=== PATIENT | female | born 1995 | race Caucasian/White ===

== ENCOUNTER 2017-10-12 09:23 | Emergency (ER) | payer MEDICAID ==
[~2017-10-12] VITALS: Ht 157.5 cm; Wt 49.0 kg
[2017-10-12 09:24] VITALS: BP 152/70; PULSE 113; RESP 20; TEMP 98.6; O2SAT 99
--- NOTE | 2017-10-12 10:23 | PD ---
HPI Chief Complaint: Related Problem Time Seen by Provider: 09:48 Travel History International Travel<30 days: No Contact w/Intl Traveler<30days: No Traveled to known affect area: No History of Present Illness HPI Patient's 22 years old. She is noted to be 12 weeks . 2 weeks prior she had a ultrasound revealing intrauterine with a normal heart rate. This morning she had vaginal bleeding. She reports pain in the left lower pelvis. She cannot quantify number of pads used however reports copious blood in toilet bowl this am. She reports the urge to urinate in ER. This is first . She has no regular OB follow up. PFS Past Medical History ?: LMP: 07/19/17 Social History Tobacco Use: No Allergies-Medications (Allergen,Severity, Reaction): Coded Allergies: No Known Allergies (Unverified , 10/12/17) Reported Meds & Prescriptions Reported Meds & Active Scripts Active No Active Prescriptions or Reported Medications Review of Systems Except as stated in HPI: all other systems reviewed are Neg General / Constitutional: No: Fever Physical Exam Narrative GENERAL: 22 yo F, WNWD, mildly anxious SKIN: Warm and dry. HEAD: Atraumatic. Normocephalic. EYES: Pupils equal and round. No scleral icterus. No injection or drainage. ENT: No nasal bleeding or discharge. Mucous membranes pink and moist. NECK: Trachea midline. No JVD. CARDIOVASCULAR: Regular rate and rhythm. RESPIRATORY: No accessory muscle use. Clear to auscultation. Breath sounds equal bilaterally. GASTROINTESTINAL: Soft. Trace tenderness towards the left side. MUSCULOSKELETAL: Extremities without clubbing, cyanosis, or edema. No obvious deformities. NEUROLOGICAL: Awake and alert. No obvious cranial nerve deficits. Motor grossly within normal limits. Five out of 5 muscle strength in the arms and legs. Normal speech. PSYCHIATRIC: Appropriate mood and affect; insight and judgment normal. Data Data Last Documented VS Vital Signs Date Time Temp Pulse Resp B/P (MAP) Pulse Ox O2 Delivery O2 Flow Rate FiO2 10/12/17 09:24 98.6 113 20 152/70 (97) 99 Room Air Vital signs reviewed Orders Orders Beta Hcg (Quant/Titer) (10/12/17 09:53) Complete Rh (10/12/17 09:53) Urinalysis - C+S If Indicated (10/12/17 09:53) Urine Culture (10/12/17 09:55) Labs Laboratory Tests Test 10/12/17 09:55 10/12/17 10:00 Urine Color YELLOW Urine Turbidity CLOUDY Urine pH 7.5 Urine Specific [place] 1.017 Urine Protein 30 mg/dL Urine Glucose (UA) NEG mg/dL Urine Ketones NEG mg/dL Urine Occult Blood LARGE Urine Nitrite NEG Urine Bilirubin NEG Urine Urobilinogen LESS THAN 2.0 MG/DL Urine Leukocyte Esterase NEG Urine RBC 2 /hpf Urine WBC 1 /hpf Urine Squamous Epithelial Cells 22 /hpf Urine Amorphous Sediment MOD Urine Bacteria MOD /hpf Urine Mucus FEW /lpf Microscopic Urinalysis Comment CULTURE INDICATED Human Chorionic Gonadotropin, Quant 49599 MIU/ML MDM Medical Decision Making Medical Screen Exam Complete: Yes Emergency Medical Condition: Yes Differential Diagnosis UTI, blood type incompatibility, threatened Narrative Course OK positive Beta 90,663 TA US: IUP HR approx 150 UA: bacteriuria present, hematuria Pt HD stable Follow with OB in two days Pt verbalized understanding DX: threatened ab pelvic rest precautions discussed Diagnosis Primary Impression: Threatened miscarriage Referrals: Laurel Thakkar MD 2 days [employer] [facility] 2 days [facility] 2 days Additional Instructions: PLEASE FOLLOW UP WITH ANY OF THE OBSTETRICS NUMBERS LISTED Med/Other Pt SpecificInfo: Prescription(s) given Scripts Nitrofurantoin Monohydrate Macrocrystals (Macrobid) 100 Mg Cap 100 MG PO BID for Infection for 5 Days, #10 CAP 0 Refills Prov: Cosme Denson MD 10/12/17 Disposition: 01 DISCHARGE HOME Condition: Stable Cosme Denson MD Oct 12, 2017 10:23
[2017-10-12 10:41] LABS: BACTERIA, URINE MOD /hpf; BLOOD, URINE LARGE (NEG); GLUCOSE,URINE NEG (NEG); KETONE, URINE NEG (NEG); MUCUS URINE FEW /lpf (OCC); NITRITE,URINE NEG (NEG); PH, URINE 7.5 (5.0-8.5); SQUAMOUS EPITHELIAL CELL URINE 22 /hpf (0-5); URINE COLOR YELLOW (YELLW/STRAW)
[2017-10-12 10:42] LABS: COMMENT (UR) CULTURE INDICATED; CULTURE IF INDICATED CULTURE INDICATED
[2017-10-12 10:56] LABS: BETA HCG QUANT 90663 MIU/ML (0-5)
[2017-10-12] MEDS ORDERED: MACR100C2 PO (11:16)
== END 2017-10-12 11:52 | disposition home or self-care (01) ==
LOC: NEPD 09:23
DX: O20.0 Threatened abortion (principal); R82.71 Bacteriuria; R31.9 Hematuria, unspecified; Z3A.12 12 weeks gestation of pregnancy
CPT/HCPCS: 81001; 84702; 86901; 87086; 99285

== ENCOUNTER 2017-10-27 16:54 | Emergency (ER) | payer SELFPAY ==
[~2017-10-27 16:54] MED LIST: MACR100C2 PO
[2017-10-27 16:56] VITALS: BP 121/74; PULSE 81; RESP 18; TEMP 98.1; O2SAT 99
[2017-10-27] MEDS ORDERED: PRENTAB7 (17:14)
[2017-10-27 19:09] LABS: BACTERIA, URINE FEW /hpf; BILIRUBIN, URINE NEG (NEG); BLOOD, URINE MOD (NEG); GLUCOSE,URINE NEG (NEG); HYALINE CAST, URINE 1 /lpf (RARE); KETONE, URINE 150 mg/dL (NEG); MUCUS URINE FEW /lpf (OCC); NITRITE,URINE NEG (NEG); PH, URINE 5.5 (5.0-8.5); SQUAMOUS EPITHELIAL CELL URINE <1 /hpf (0-5); URINE COLOR YELLOW (YELLW/STRAW); URINE LEUKOCYTE ESTERASE NEG (NEG)
--- NOTE | 2017-10-27 19:38 | PD ---
HPI . Bleeding in Chief Complaint: Related Problem Time Seen by Provider: 17:20 Travel History International Travel<30 days: No Contact w/Intl Traveler<30days: No Traveled to known affect area: No History of Present Illness HPI This patient presents stating that she is 14 weeks and that she started bleeding today approximately 1 hour prior to presentation. She is using toilet paper for protection. The patient reports a previous similar episode a few weeks ago. She states that she was instructed to follow-up with OB but that she has been unsuccessful in obtaining an appointment. She states that she has called the office on multiple occasions and has been told that the doctor will call her back with an appointment. This is her first . She does not know her blood type. She reports no known modifying factors. Her symptoms are very mild. PFSH Past Medical History Diminished Hearing: No ?: LMP: 07/19/2017 : 1 Social History Alcohol Use: No Tobacco Use: No Substance Use: No Allergies-Medications (Allergen,Severity, Reaction): Coded Allergies: No Known Allergies (Unverified , 10/27/17) Reported Meds & Prescriptions Reported Meds & Active Scripts Active Reported Vitamins Tablet (Pnv No.95/Ferrous Fum/Folic AC) 28 Mg Iron-800 Mcg Tablet DAILY Review of Systems Except as stated in HPI: all other systems reviewed are Neg Genitourinary: Positive: Vaginal Bleeding Physical Exam Narrative GENERAL: Awake and alert and in no acute distress. SKIN: Warm and dry. HEAD: Normocephalic/atraumatic. EYES: Pupils are equal. Extraocular movements are intact. NECK: Normal range of motion. CARDIOVASCULAR: Regular rate and rhythm. RESPIRATORY: Nonlabored respirations. ABDOMEN: Abdomen is soft and nontender. : Scant blood in the vaginal vault. Cervical os is closed. There is no cervical motion tenderness. Her adnexa is nontender. Her uterus is appropriately enlarged for dates. MUSCULOSKELETAL: Atraumatic. NEUROLOGICAL: Nonfocal. PSYCHIATRIC: Appropriate mood and affect. Data Data Last Documented VS Vital Signs Date Time Temp Pulse Resp B/P (MAP) Pulse Ox O2 Delivery O2 Flow Rate FiO2 10/27/17 16:56 98.1 81 18 121/74 (90) 99 Room Air Orders Orders Gc And Chlamydia Pcr (10/27/17 17:30) Complete Rh (10/27/17 17:30) Wet Prep Profile (10/27/17 17:30) Urinalysis - C+S If Indicated (10/27/17 18:42) Labs Laboratory Tests Test 10/27/17 18:35 10/27/17 18:50 Clue Cells (Wet Prep) NONE SEEN Vaginal Trichomonas (Wet Prep) NONE SEEN Vaginal Yeast (Wet Prep) NONE SEEN Urine Color YELLOW Urine Turbidity CLEAR Urine pH 5.5 Urine Specific [place] 1.019 Urine Protein TRACE mg/dL Urine Glucose (UA) NEG mg/dL Urine Ketones 150 mg/dL Urine Occult Blood MOD Urine Nitrite NEG Urine Bilirubin NEG Urine Urobilinogen LESS THAN 2.0 MG/DL Urine Leukocyte Esterase NEG Urine RBC 2 /hpf Urine WBC 1 /hpf Urine Squamous Epithelial Cells <1 /hpf Urine Bacteria FEW /hpf Urine Hyaline Casts 1 /lpf Urine Mucus FEW /lpf Microscopic Urinalysis Comment CULT NOT INDICATED MDM Medical Decision Making Medical Screen Exam Complete: Yes Emergency Medical Condition: Yes Differential Diagnosis Differential diagnosis of bleeding in includes but is not limited to physiologic bleeding, spontaneous AB, ectopic , placenta previa Narrative Course This patient presents stating that she is 14 weeks and started bleeding one hour prior to presentation. I asked the nurses to obtain heart tones. They use the ultrasound machine to check her heart rate. Heart rate was about 160 and the baby was noted to be very active during their check of the heart tones. UA is negative for infection. Wet prep is negative. Blood type is O+. This patient is stable for discharge to home. She needs to establish herself with an electrician shop. Diagnosis Primary Impression: Bleeding in early Patient Instructions: General Instructions Additional Instructions: Follow-up with an electrician shop In the meantime, take a multivitamin. Avoid alcohol, cigarettes and anti- inflammatory medications such as aspirin, Advil or Aleve. Try to eat a well- balanced diet. Disposition: 01 DISCHARGE HOME Condition: Stable Cristin Lopez MD Oct 27, 2017 19:38
== END 2017-10-27 20:33 | disposition home or self-care (01) ==
LOC: NEPD 16:54
DX: O20.9 Hemorrhage in early pregnancy, unspecified (principal); Z3A.14 14 weeks gestation of pregnancy
CPT/HCPCS: 81001; 86901; 87210; 87491; 87591; 99283

== ENCOUNTER 2018-02-07 10:39 | Emergency (ER) | payer BC, MEDICAID ==
[~2018-02-07 10:39] MED LIST changes: -MACR100C2 PO; +PRENTAB7
[2018-02-07] MEDS ORDERED: LACTATED RINGER'S 1000 ML INJ 1,000 ML IV SCH (11:00)
[2018-02-07] MEDS ORDERED: TERBUTALINE INJ 1 MG/ML AMP SQ PRN (11:15)
--- NOTE | 2018-02-07 11:29 | PD ---
HPI Chief Complaint Abdominal pain back pain leg pain for about a week Date Seen: Feb 07, 2018 Time Seen: 11:22 Travel History International Travel<30 Days: No Contact w/Intl Traveler<30Days: No Known Affected Area: No History of Present Illness HPI This patient is 22-year-old at [address] Thakkar for care presents complaining of abdominal pain, back and leg pain for about a week. No leakage of fluid or blood vaginal bleeding. heart rate tracing is reactive, and she is dot with frequent low amplitude contractions at this time Weeks Gestation: 29 Para: 0 : 1 History Social History Alcohol Use: No Tobacco Use: No Substance Abuse: No Allergies-Medications (Allergen,Severity, Reaction): Coded Allergies: No Known Allergies (Unverified , 10/27/17) Home Meds Reported Medications Pnv No.95/Ferrous Fum/Folic AC ( Vitamins Tablet) 28 Mg Iron-800 Mcg Tablet, DAILY 10/27/17 Review of Systems General / Constitutional: No: Fever, Weight Gain, Chills, Other Eyes: No: Diploplia, Blurred Vision, Visual changes, Pain, Photophobia HENT: No: Headaches, Vertigo, Lightheadedness Cardiovascular: No: Irregular Rhythm, Chest Pain or Discomfort, Palpitations, Tachycardia, Syncope, Varicosities, Edema, Cyanosis Respiratory: No: Cough, Short of Breath, Other Gastrointestinal: Abdominal Pain, No: Nausea, Vomiting, Diarrhea Genitourinary: No: Decreased Urinary Output, Oliguria Musculoskeletal: Pain, No: Limited ROM, Weakness, Cramping, Edema Skin: No Rash, No Itching, No Dryness, No Lumps, No Change in Pigmentation, No Change in Nails, No Alopecia, No Lesions Neurologic: No: Weakness, Dizziness, Syncope, Focal Abnormalities, Coordination Problem, Headache, Slurred Speech, Seizures Psychiatric: No: Depression, Suicidal Ideations, Homicidal Ideation Endocrine: No: Heat Intolerance, Cold Intolerance, Polydipsia, Polyuria, Other Physical Exam Narrative GENERAL: Well-nourished, well-developed patient. SKIN: Warm and dry. HEAD: Normocephalic and atraumatic. EYES: No scleral icterus. No injection or drainage. ENT: No nasal drainage noted. Mucous membranes pink. Airway patent. NECK: Supple, trachea midline. No JVD. CARDIOVASCULAR: Regular rate and rhythm without murmurs, gallops, or rubs. RESPIRATORY: Breath sounds equal bilaterally. No accessory muscle use. BREASTS: Bilateral exam showed no masses , no retractions, no nipple discharge. ABDOMEN/GI: Abdomen soft, 1+-tender, bowel sounds present, no rebound, no guarding Gravid to [-29] weeks size Fundal Height: [29-] GENITOURINARY: External Genitalia: intact and normal in appearance FFN done Cervix: [mid-] Dilatation: [-0] Effacement: [thick-] Station: [-2] Membranes: [intact ] Uterine Contractions: [-+ small freq low amplitude CTXs seen] FHT's: Category: [1-] Baseline: [-133] Reactive: [-R] Variability: [-mod] Decels: [-0] EXTREMITIES: No cyanosis or edema. BACK: Nontender without obvious deformity. No CVA tenderness. NEUROLOGICAL: Awake and alert. Motor and sensory grossly within normal limits. Five out of 5 muscle strength in all muscle groups. Normal speech. Data Data Orders Orders Vital Signs (Adult) .ON ADMISSION (02/07/18 11:12) ^ Labor Status (02/07/18 11:12) Urinalysis - C+S If Indicated (02/07/18 11:12) ^ Non Stress Test (02/07/18 11:12) Diet Liquid (02/07/18 Lunch) Fibronectin (02/07/18 11:12) Lactated Ringer's 1000 Ml Inj (Lr 1000 M (02/07/18 11:00) Terbutaline Inj (Brethine Inj) (02/07/18 11:15) Fentanyl Inj (Fentanyl Inj) (02/07/18 11:15) Labs Urinalysis-shows many bacteria and white cells negative nitrites and culture indicated Laboratory Tests Test 02/07/18 11:00 MDM Interpretation(s) Patient is a 22-year-old at [address] Thakkar for care presents complaining of abdominal back and leg pain. She is noted to have low amplitude frequent contractions on the monitor, heart rate tracing is reactive, cervix is closed but mid position and -2 station. FFN done and negative., Urinalysis- Plan Plan to hydrate, sedate, medicate this threatened labor with IV fluid, subcu terbutaline, and IV fentanyl, urinalysis with culture indicated would indicate treatment needed. While here with IV will give 100 mg of gentamicin IV. And then home with a monurol 3 g one-time dose for UTI. Tocolytic measures were successful contractions stopped , plan for patient be discharged home to bedrest, increase p.o. fluids, Tylenol as needed as needed. Diagnosis Diagnosis: Primary Impression: uterine contractions in third trimester, antepartum Additional Impressions: UTI (urinary tract infection) in in third trimester 29 weeks gestation of Disposition: DISCHARGE HOME Condition: Stable Scripts Fosfomycin Packet (Monurol Packet) 3 Gm Powderpack 3 GM PO ONCE for Infection for 1 Day, GM Prov: Demetrio Mckeon II, MD 02/07/18 Demetrio Mckeon II, MD Feb 07, 2018 11:29
[2018-02-07 11:36] LABS: BACTERIA, URINE MANY /hpf; BILIRUBIN, URINE NEG (NEG); BLOOD, URINE NEG (NEG); GLUCOSE,URINE NEG (NEG); KETONE, URINE NEG (NEG); MUCUS URINE FEW /lpf (OCC); NITRITE,URINE NEG (NEG); PH, URINE 6.5 (5.0-8.5); SQUAMOUS EPITHELIAL CELL URINE 3 /hpf (0-5); URINE COLOR LIGHT-YELLOW (YELLW/STRAW); URINE LEUKOCYTE ESTERASE NEG (NEG)
[2018-02-07] MEDS ORDERED: GENTAMICIN INJ 100 MG in SODIUM CHLORIDE 0.9% INJ 100 ML IV ONE (12:00)
[2018-02-07] MEDS ORDERED: MONUPAK PO (12:16)
== END 2018-02-07 12:55 | disposition home or self-care (01) ==
LOC: HOBED 10:39
DX: O23.43 Unspecified infection of urinary tract in pregnancy, third trimester (principal); Z3A.29 29 weeks gestation of pregnancy
CPT/HCPCS: 81001; 82731; 87086; 96361; 96365; 96372; 96375; 99284; J1580; J3010; J3105; J7120

== ENCOUNTER 2018-04-23 15:42 | Emergency (ER) | payer BC ==
[~2018-04-23 15:42] MED LIST changes: +MONUPAK PO
--- NOTE | 2018-04-23 16:51 | PD ---
HPI Chief Complaint contractions Date Seen: Apr 23, 2018 Time Seen: 16:47 Travel History International Travel<30 Days: No Contact w/Intl Traveler<30Days: No Known Affected Area: No History of Present Illness HPI G1 at 39 + wks who notes contraction. Denies LOF, good FM. History Past Medical History Medical History: Denies Significant Hx Obstetric History Obstetric History G1, care with [facility] Past Surgical History Surgical History: No Previous Surgery Family History Family History: Negative Social History Alcohol Use: No Tobacco Use: No Substance Abuse: No Allergies-Medications (Allergen,Severity, Reaction): Coded Allergies: No Known Allergies (Unverified , 10/27/17) Home Meds Active Scripts Fosfomycin Packet (Monurol Packet) 3 Gm Powderpack, 3 GM PO ONCE for Infection for 1 Day, GM Prov:Demetrio Mckeon II, MD 02/07/18 Reported Medications Pnv No.95/Ferrous Fum/Folic AC ( Vitamins Tablet) 28 Mg Iron-800 Mcg Tablet, DAILY 10/27/17 Review of Systems Except as stated in HPI: all other systems reviewed are Neg Physical Exam Narrative GENERAL: Well-nourished, well-developed patient. SKIN: Warm and dry. HEAD: Normocephalic and atraumatic. EYES: No scleral icterus. No injection or drainage. ENT: No nasal drainage noted. Mucous membranes pink. Airway patent. NECK: Supple, trachea midline. No JVD. CARDIOVASCULAR: Regular rate and rhythm without murmurs, gallops, or rubs. RESPIRATORY: Breath sounds equal bilaterally. No accessory muscle use. ABDOMEN/GI: Abdomen soft, non-tender, bowel sounds present, no rebound, no guarding Gravid to [-] weeks size Fundal Height: [38-] GENITOURINARY: External Genitalia: intact and normal in appearance BUS glands: [-] Cervix: [-] Dilatation: [-] Effacement: [-] Station: [-] Presentation: [-] Membranes: [intact or ruptured] Uterine Contractions: [-] FHT's: Category: [1-] Baseline: [-] Reactive: [-y] Variability: [-] Decels: [-] EXTREMITIES: No cyanosis or edema. BACK: Nontender without obvious deformity. No CVA tenderness. NEUROLOGICAL: Awake and alert. Motor and sensory grossly within normal limits. Five out of 5 muscle strength in all muscle groups. Normal speech. MDM Medical Record Reviewed: Yes Narrative Course / MDM A: primip at term not in labor P: labor precautions Diagnosis Diagnosis: Primary Impression: 39 weeks gestation of Additional Impression: Irregular uterine contractions Disposition: 01 DISCHARGE HOME Condition: Good Greg Elias MD Apr 23, 2018 16:51
--- NOTE | 2018-04-23 23:45 | PD ---
HPI Chief Complaint Increasing contractions and leakage of fluid Date Seen: Apr 23, 2018 Time Seen: 23:41 Travel History International Travel<30 Days: No Contact w/Intl Traveler<30Days: No Known Affected Area: No History of Present Illness HPI G1 at 39 + wks who notes increasing contractions and leakage of fluid. Weeks Gestation: 39 History Past Medical History Medical History: Denies Significant Hx Obstetric History Obstetric History Primigravida Past Surgical History Surgical History: No Previous Surgery Family History Family History: Negative Social History Alcohol Use: No Tobacco Use: No Substance Abuse: No Allergies-Medications (Allergen,Severity, Reaction): Coded Allergies: No Known Allergies (Unverified , 10/27/17) Home Meds Active Scripts Fosfomycin Packet (Monurol Packet) 3 Gm Powderpack, 3 GM PO ONCE for Infection for 1 Day, GM Prov:Demetrio Mckeon II, MD 02/07/18 Reported Medications Pnv No.95/Ferrous Fum/Folic AC ( Vitamins Tablet) 28 Mg Iron-800 Mcg Tablet, DAILY 10/27/17 Review of Systems Except as stated in HPI: all other systems reviewed are Neg Physical Exam Narrative GENERAL: Well-nourished, well-developed patient. SKIN: Warm and dry. HEAD: Normocephalic and atraumatic. EYES: No scleral icterus. No injection or drainage. ENT: No nasal drainage noted. Mucous membranes pink. Airway patent. NECK: Supple, trachea midline. No JVD. CARDIOVASCULAR: Regular rate and rhythm without murmurs, gallops, or rubs. RESPIRATORY: Breath sounds equal bilaterally. No accessory muscle use. ABDOMEN/GI: Abdomen soft, non-tender, bowel sounds present, no rebound, no guarding Gravid to [-] weeks size Fundal Height: [-] GENITOURINARY: External Genitalia: intact and normal in appearance BUS glands: [Negative-] Cervix: [-] Dilatation: [2-] Effacement: [-100] Station: [-1-] Presentation: [Vertex] Membranes: [ruptured] Uterine Contractions: [Every 2-3-] FHT's: Category: [-] Baseline: [140-] Reactive: [-] Variability: [Moderate-] Decels: [-] EXTREMITIES: No cyanosis or edema. BACK: Nontender without obvious deformity. No CVA tenderness. NEUROLOGICAL: Awake and alert. Motor and sensory grossly within normal limits. Five out of 5 muscle strength in all muscle groups. Normal speech. Data Data Vital Signs Reviewed: Yes Group B Strep: Negative MDM Medical Record Reviewed: Yes Narrative Course / MDM Assessment: Primigravida at 39+ weeks gestation in early labor with ruptured membranes Plan: Admit for labor management. Diagnosis Diagnosis: Primary Impression: 39 weeks gestation of Additional Impression: Irregular uterine contractions Condition: Stable Patient Instructions: General Instructions, Having Your Baby: The Labor Process (GEN), Movement (ED), Urinary Tract Infection in (ED) Departure Forms: Tests/Procedures Greg Elias MD Apr 23, 2018 23:45
[2018-04-23] MEDS ORDERED: LACTATED RINGER'S 1000 ML INJ 1,000 ML IV SCH (23:46)
[2018-04-23] MEDS ORDERED: LACTATED RINGER'S 1000 ML INJ 1,000 ML IV PRN (23:46)
--- NOTE | 2018-04-23 23:49 | HHI.HP ---
History & Physical H&P OB ED Note (Detail) Patient Name: Anamaria Sandhu Unit Number: [id number] Date of : 1995 Patient Status: Departed Emergency Room Attending Doctor: Greg Elias MD HPI HPI Chief Complaint Increasing contractions and leakage of fluid Date Seen: Apr 23, 2018 Time Seen: 23:41 Travel History International Travel<30 Days: No Contact w/Intl Traveler<30Days: No Known Affected Area: No History of Present Illness HPI G1 at 39 + wks who notes increasing contractions and leakage of fluid. Weeks Gestation: 39 History (Limited) History Past Medical History Medical History: Denies Significant Hx Obstetric History Obstetric History Primigravida Past Surgical History Surgical History: No Previous Surgery Family History Family History: Negative Social History Alcohol Use: No Tobacco Use: No Substance Abuse: No Allergies-Medications Allergies-Medications (Allergen,Severity, Reaction): Coded Allergies: No Known Allergies (Unverified , 10/27/17) Home Meds Active Scripts Fosfomycin Packet (Monurol Packet) 3 Gm Powderpack, 3 GM PO ONCE for Infection for 1 Day, GM Prov:Demetrio Mckeon II, MD 02/07/18 Reported Medications Pnv No.95/Ferrous Fum/Folic AC ( Vitamins Tablet) 28 Mg Iron-800 Mcg Tablet, DAILY 10/27/17 ROS Review of Systems Except as stated in HPI: all other systems reviewed are Neg Physical Exam Physical Exam Narrative GENERAL: Well-nourished, well-developed patient. SKIN: Warm and dry. HEAD: Normocephalic and atraumatic. EYES: No scleral icterus. No injection or drainage. ENT: No nasal drainage noted. Mucous membranes pink. Airway patent. NECK: Supple, trachea midline. No JVD. CARDIOVASCULAR: Regular rate and rhythm without murmurs, gallops, or rubs. RESPIRATORY: Breath sounds equal bilaterally. No accessory muscle use. ABDOMEN/GI: Abdomen soft, non-tender, bowel sounds present, no rebound, no guarding Gravid to [-] weeks size Fundal Height: [-] GENITOURINARY: External Genitalia: intact and normal in appearance BUS glands: [Negative-] Cervix: [-] Dilatation: [2-] Effacement: [-100] Station: [-1-] Presentation: [Vertex] Membranes: [ruptured] Uterine Contractions: [Every 2-3-] FHT's: Category: [-] Baseline: [140-] Reactive: [-] Variability: [Moderate-] Decels: [-] EXTREMITIES: No cyanosis or edema. BACK: Nontender without obvious deformity. No CVA tenderness. NEUROLOGICAL: Awake and alert. Motor and sensory grossly within normal limits. Five out of 5 muscle strength in all muscle groups. Normal speech. Data Data Data Vital Signs Reviewed: Yes Group B Strep: Negative MDM MDM Medical Record Reviewed: Yes Narrative Course / MDM Assessment: Primigravida at 39+ weeks gestation in early labor with ruptured membranes Plan: Admit for labor management. Diagnosis Diagnosis: Primary Impression: 39 weeks gestation of Additional Impression: Irregular uterine contractions Condition: Stable Patient Instructions: General Instructions, Having Your Baby: The Labor Process (GEN), Movement (ED), Urinary Tract Infection in (ED) Departure Forms: Tests/Procedures Greg Elias MD Apr 23, 2018 23:45 Greg Elias MD Apr 23, 2018 23:49
[2018-04-24] MEDS ORDERED: CITRIC ACID-SODIUM CITRATE LIQ 30 ML UDC PO SCH
[2018-04-24] MEDS ORDERED: OXYTOCIN 30 UNITS-500ML PREMIX 500 ML IV ONE
[2018-04-24] MEDS ORDERED: LIDOCAINE HCL 1% 50 ML VIAL I-DERMAL PRN
[2018-04-24] MEDS ORDERED: LIDOCAINE HCL 1% 50 ML VIAL INFIL PRN
[2018-04-24] MEDS ORDERED: MINERAL OIL 10 ML VIAL TOPICAL PRN
[2018-04-24] MEDS ORDERED: SODIUM CHLORID 0.9% 500 ML INJ 500 ML IV PRN
[2018-04-24] MEDS ORDERED: SODIUM CHLOR 0.9% 1000 ML INJ 1,000 ML IV PRN (00:06)
[2018-04-24 00:32] LABS: AUTOMATED NEUTROPHIL # 13.2 TH/MM3 (1.8-7.7); BASOPHIL # 0.1 TH/MM3 (0-0.2); BASOPHIL % 0.4 % (0.0-2.0); EOSINOPHIL % 0.3 % (0.0-4.0); HEMATOCRIT 41.6 % (35.0-46.0); HEMOGLOBIN 14.3 GM/DL (11.6-15.3); LYMPH % 11.5 % (9.0-44.0); LYMPHOCYTE # 1.8 TH/MM3 (1.0-4.8); MEAN CELL VOLUME 87.1 FL (80.0-100.0); MEAN CORPUSCULAR HEMOGLOBIN 29.8 PG (27.0-34.0); MEAN CORPUSCULAR HGB CONC 34.3 % (32.0-36.0); MEAN PLATELET VOLUME 8.2 FL (7.0-11.0); MONO % 5.7 % (0.0-8.0); MONOCYTE # 0.9 TH/MM3 (0-0.9); NEUT % 82.1 % (16.0-70.0); PLATELET COUNT 321 TH/MM3 (150-450); RED BLOOD COUNT 4.78 MIL/MM3 (4.00-5.30); RED CELL DISTRIBUTION WIDTH 13.3 % (11.6-17.2); WHITE BLOOD COUNT 16.1 TH/MM3 (4.0-11.0)
== END 2018-04-23 18:07 | disposition home or self-care (01) ==
LOC: HOBED 15:42
DX: O47.1 False labor at or after 37 completed weeks of gestation (principal); Z3A.39 39 weeks gestation of pregnancy
CPT/HCPCS: 59025; 80307; 84112; 85025; 86900; 86901

== ENCOUNTER 2018-04-23 23:21 | Inpatient (IN) | payer BC ==
[~2018-04-23] VITALS: Ht 157.5 cm; Wt 58.0 kg
[2018-04-24] VITALS (72 sets, daily range): BP systolic 87–133; BP diastolic 51–92; PULSE 61–119; RESP 16–20; TEMP 97.5–98.8
[2018-04-24] MEDS ORDERED: LIDOCAINE HCL 1% 50 ML VIAL INFIL PRN (00:30)
[2018-04-24] MEDS ORDERED: LACTATED RINGER'S 1000 ML INJ 1,000 ML IV PRN (00:30)
[2018-04-24] MEDS ORDERED: LIDOCAINE HCL 1% 50 ML VIAL I-DERMAL PRN (00:30)
[2018-04-24] MEDS ORDERED: MINERAL OIL 10 ML VIAL TOPICAL PRN (00:30)
[2018-04-24] MEDS: LACTATED RINGER'S 1000 ML INJ 1,000 ML IV SCH ×3 (00:30→16:34)
[2018-04-24] MEDS ORDERED: SODIUM CHLORID 0.9% 500 ML INJ 500 ML IV PRN (00:30)
[2018-04-24] MEDS ORDERED: CITRIC ACID-SODIUM CITRATE LIQ 30 ML UDC PO SCH (00:30)
[2018-04-24] MEDS ORDERED: OXYTOCIN 30 UNITS-500ML PREMIX 500 ML IV ONE (00:30)
--- NOTE | 2018-04-24 00:34 | HHI.HP ---
History & Physical H&P OB ED Note (Detail) Patient Name: Anamaria Sandhu Unit Number: [id number] Date of : 1995 Patient Status: Departed Emergency Room Attending Doctor: Greg Elias MD HPI HPI Chief Complaint Increasing contractions and leakage of fluid Date Seen: Apr 23, 2018 Time Seen: 23:41 Travel History International Travel<30 Days: No Contact w/Intl Traveler<30Days: No Known Affected Area: No History of Present Illness HPI G1 at 39 + wks who notes increasing contractions and leakage of fluid. Weeks Gestation: 39 History (Limited) History Past Medical History Medical History: Denies Significant Hx Obstetric History Obstetric History Primigravida Past Surgical History Surgical History: No Previous Surgery Family History Family History: Negative Social History Alcohol Use: No Tobacco Use: No Substance Abuse: No Allergies-Medications Allergies-Medications (Allergen,Severity, Reaction): Coded Allergies: No Known Allergies (Unverified , 10/27/17) Home Meds Active Scripts Fosfomycin Packet (Monurol Packet) 3 Gm Powderpack, 3 GM PO ONCE for Infection for 1 Day, GM Prov:Demetrio Mckeon II, MD 02/07/18 Reported Medications Pnv No.95/Ferrous Fum/Folic AC ( Vitamins Tablet) 28 Mg Iron-800 Mcg Tablet, DAILY 10/27/17 ROS Review of Systems Except as stated in HPI: all other systems reviewed are Neg Physical Exam Physical Exam Narrative GENERAL: Well-nourished, well-developed patient. SKIN: Warm and dry. HEAD: Normocephalic and atraumatic. EYES: No scleral icterus. No injection or drainage. ENT: No nasal drainage noted. Mucous membranes pink. Airway patent. NECK: Supple, trachea midline. No JVD. CARDIOVASCULAR: Regular rate and rhythm without murmurs, gallops, or rubs. RESPIRATORY: Breath sounds equal bilaterally. No accessory muscle use. ABDOMEN/GI: Abdomen soft, non-tender, bowel sounds present, no rebound, no guarding Gravid to [-] weeks size Fundal Height: [-] GENITOURINARY: External Genitalia: intact and normal in appearance BUS glands: [Negative-] Cervix: [-] Dilatation: [2-] Effacement: [-100] Station: [-1-] Presentation: [Vertex] Membranes: [ruptured] Uterine Contractions: [Every 2-3-] FHT's: Category: [-] Baseline: [140-] Reactive: [-] Variability: [Moderate-] Decels: [-] EXTREMITIES: No cyanosis or edema. BACK: Nontender without obvious deformity. No CVA tenderness. NEUROLOGICAL: Awake and alert. Motor and sensory grossly within normal limits. Five out of 5 muscle strength in all muscle groups. Normal speech. Data Data Data Vital Signs Reviewed: Yes Group B Strep: Negative MDM MDM Medical Record Reviewed: Yes Narrative Course / MDM Assessment: Primigravida at 39+ weeks gestation in early labor with ruptured membranes Plan: Admit for labor management. Diagnosis Diagnosis: Primary Impression: 39 weeks gestation of Additional Impression: Irregular uterine contractions Condition: Stable Patient Instructions: General Instructions, Having Your Baby: The Labor Process (GEN), Movement (ED), Urinary Tract Infection in (ED) Departure Forms: Tests/Procedures Greg Elias MD Apr 23, 2018 23:45 Greg Elias MD Apr 24, 2018 00:34
[2018-04-24] MEDS ORDERED: SODIUM CHLOR 0.9% 1000 ML INJ 1,000 ML IV PRN (00:50)
[2018-04-24 04:52] LABS: BACTERIA, URINE OCC /hpf; BILIRUBIN, URINE NEG (NEG); BLOOD, URINE SMALL (NEG); GLUCOSE,URINE NEG (NEG); KETONE, URINE TRACE mg/dL (NEG); NITRITE,URINE NEG (NEG); SQUAMOUS EPITHELIAL CELL URINE 2 /hpf (0-5); URINE COLOR Straw (YELLW/STRAW); URINE LEUKOCYTE ESTERASE NEG (NEG)
[2018-04-24] MEDS ORDERED: OXYTOCIN 30 UNITS/NS 500ML PREMIX IV PRN (06:30)
[2018-04-24] MEDS ORDERED: fentaNYL 2MCG-BUPIV 0.125% INJ 150 ML EPIDURAL ONE (09:55)
[2018-04-24] MEDS ORDERED: ePHEDrine/NS 25 MG/5 ML SYRINGE ONE (09:56)
[2018-04-24] MEDS ORDERED: DO NOT ADMINISTER ANTICOAGULANTS PRN (10:45)
[2018-04-24] MEDS ORDERED: ePHEDrine/NS 25 MG/5 ML SYRINGE IV PUSH PRN (10:45)
[2018-04-24] MEDS ORDERED: fentaNYL 2MCG-BUPIV 0.125% 150 ML EPIDURAL PRN (10:45)
[2018-04-24] MEDS ORDERED: NO SYSTEM NARCOTICS PRN (10:45)
--- NOTE | 2018-04-24 12:41 | PD.LABORPN ---
Subjective Subjective doing well Objective Vital Signs Vital Signs Date Time Temp Pulse Resp B/P (MAP) Pulse Ox O2 Delivery O2 Flow Rate FiO2 04/24/18 12:04 97.5 17 04/24/18 12:00 64 117/61 (79) 04/24/18 11:46 80 100/72 (81) 04/24/18 11:40 65 119/57 (77) 04/24/18 11:35 70 118/60 (79) 04/24/18 11:30 79 132/72 (92) 04/24/18 11:25 67 115/56 (75) 04/24/18 11:20 75 113/55 (74) 04/24/18 11:15 88 105/65 (78) 04/24/18 11:10 86 112/60 (77) 04/24/18 11:05 64 124/67 (86) 04/24/18 11:00 91 133/59 (83) 04/24/18 10:58 62 112/64 (80) 04/24/18 10:56 79 04/24/18 10:55 69 04/24/18 10:50 66 116/60 (78) 04/24/18 10:50 63 04/24/18 10:45 78 04/24/18 10:45 73 116/62 (80) 04/24/18 10:40 64 04/24/18 10:40 87 118/58 (78) 04/24/18 10:38 18 04/24/18 10:35 77 104/55 (71) 04/24/18 10:35 92 04/24/18 10:30 62 04/24/18 10:30 66 108/54 (72) 04/24/18 10:25 61 04/24/18 10:25 74 116/54 (74) 04/24/18 10:23 97.7 17 04/24/18 10:20 70 112/53 (72) 04/24/18 10:20 68 04/24/18 10:15 83 126/53 (77) 04/24/18 10:15 71 04/24/18 10:13 67 18 124/58 (80) 04/24/18 10:10 72 04/24/18 10:05 93 04/24/18 09:31 65 128/78 (95) 04/24/18 09:01 67 19 128/66 (86) 04/24/18 08:24 18 04/24/18 08:15 19 04/24/18 08:01 71 128/58 (81) 04/24/18 07:53 98.3 04/24/18 07:30 87 123/64 (83) 04/24/18 07:20 19 04/24/18 07:00 104 119/63 (81) 04/24/18 06:48 98.3 18 04/24/18 06:47 98 128/86 (100) 04/24/18 05:59 16 04/24/18 05:59 62 103/56 (72) 04/24/18 04:53 78 18 119/55 (76) 04/24/18 04:53 98.2 Objective Pelvic Exam: Cervix: [-] Dilatation: 4-5 Effacement: [-] Station: [-] Presentation: vtx Membranes: AROM Uterine Contractions: [-] FHT's: Category: 1 Baseline: [-] Reactive: [-] Variability: [-] Decels: [-] Weeks Gestation: 39 Gest Age Assessed Date: Apr 24, 2018 Gest Age Assessed Time: 00:01 Assessment/Plan Problem List: (1) 39 weeks gestation of ICD Codes: Z3A.39 - 39 weeks gestation of Status: Acute Assessment and Plan patient membranes ruptured and she was admitted and was dot well little progress and then we started pitocin and then AROM the forebag Paco Gallegos MD Apr 24, 2018 12:41
[2018-04-24] MEDS ORDERED: MEASLES, MUMPS, RUBELLA VACCINE 0.5 ML VIAL SQ ONE (16:00)
[2018-04-24] MEDS ORDERED: DIPHTH/TETANUS/ACEL PERTUSSIS (BOOSTER) 0.5 ML VIAL/PFS IM ONE (16:00)
[2018-04-24] MEDS ORDERED: ZOLPIDEM TARTRATE 5 MG TAB PO PRN (18:00)
[2018-04-24] MEDS ORDERED: ONDANSETRON ODT 4 MG TAB PO PRN (18:00)
[2018-04-24] MEDS ORDERED: WITCH HAZEL 50%/GLYCERIN 12.5% 40 PAD JAR TOPICAL PRN (18:00)
[2018-04-24] MEDS ORDERED: OXYTOCIN 30 UNITS-500ML PREMIX 500 ML IV SCH (18:00)
[2018-04-24] MEDS ORDERED: ALUMINUM/MAGNESIUM/SIMETH 30 ML CUP PO PRN (18:00)
[2018-04-24] MEDS ORDERED: oxyCODONE/ACETAMINOPHEN 5 MG/325 MG TAB PO PRN ×2 (18:00)
[2018-04-24] MEDS ORDERED: SODIUM CHLORIDE 0.9% FLUSH 10 ML FLUSH IV FLUSH PRN (18:00)
[2018-04-24] MEDS ORDERED: BENZOCAINE 20% TOPICAL SPRAY 60 ML CAN TOPICAL PRN (18:00)
--- NOTE | 2018-04-24 18:00 | PD.OB.DELI ---
Weeks gestation: 39 Gest age assessed date: Apr 24, 2018 Gest age assessed time: 00:01 Anesthesia: Epidural Episiotomy: None Vaginal Delivery: Normal Presentation: Occiput anterior Nuchal Cord: None Delayed cord clamping (45 sec): Yes : Female, Single Delivery date: Apr 24, 2018 Delivery time: 17:39 One Minute : 9 Five Minute : 9 Placenta: Spontaneous delivery, Intact, 3 vessel cord Laceration: Perineal laceration, 2 deg Repair: Chromic interrupted Paco Gallegos MD Apr 24, 2018 18:00
[2018-04-24] MEDS: IBUPROFEN 800 MG TAB PO PRN (20:01)
[2018-04-24] MEDS ORDERED: SODIUM CHLORIDE 0.9% FLUSH 10 ML FLUSH IV FLUSH SCH (21:00)
[2018-04-24] MEDS: ACETAMINOPHEN 325 MG TAB PO PRN (21:20)
[2018-04-25] MEDS: IBUPROFEN 800 MG TAB PO PRN ×2 (04:26→15:42)
[2018-04-25] MEDS: ACETAMINOPHEN 325 MG TAB PO PRN ×4 (04:26→21:04)
[2018-04-25 08:00] VITALS: TEMP 98
--- NOTE | 2018-04-25 09:30 | HHI.OB ---
Subjective Post Day: 1 Remarks Pt doing well, no co Objective Vitals/I&O Vital Signs Date Time Temp Pulse Resp B/P (MAP) Pulse Ox O2 Delivery O2 Flow Rate FiO2 04/25/18 08:00 98.0 04/24/18 20:35 76 18 119/71 (87) 04/24/18 20:35 98.5 04/24/18 18:48 18 04/24/18 18:45 98 124/70 (88) 04/24/18 18:30 92 125/67 (86) 04/24/18 18:22 90 17 130/76 (94) 04/24/18 18:20 18 04/24/18 18:00 90 129/71 (90) 04/24/18 17:57 98.3 04/24/18 17:52 17 04/24/18 17:51 103 126/92 (103) 04/24/18 17:35 106 04/24/18 17:30 106 04/24/18 17:25 108 04/24/18 17:20 85 04/24/18 17:01 119 123/70 (87) 04/24/18 16:31 81 118/73 (88) 04/24/18 16:01 84 109/71 (84) 04/24/18 15:31 90 121/57 (78) 04/24/18 15:26 98.5 18 04/24/18 15:01 82 117/51 (73) 04/24/18 14:31 79 120/57 (78) 04/24/18 14:01 88 121/59 (79) 04/24/18 13:31 79 108/62 (77) 04/24/18 13:02 74 119/66 (83) 04/24/18 12:31 82 87/71 (76) 04/24/18 12:04 97.5 17 04/24/18 12:00 64 117/61 (79) 04/24/18 11:46 80 100/72 (81) 04/24/18 11:40 65 119/57 (77) 04/24/18 11:35 70 118/60 (79) 04/24/18 11:30 79 132/72 (92) 04/24/18 11:25 67 115/56 (75) 6/24/18 11:20 75 113/55 (74) 04/24/18 11:15 88 105/65 (78) 04/24/18 11:10 86 112/60 (77) 04/24/18 11:05 64 124/67 (86) 04/24/18 11:00 91 133/59 (83) 04/24/18 10:58 62 112/64 (80) 04/24/18 10:56 79 04/24/18 10:55 69 04/24/18 10:50 66 116/60 (78) 04/24/18 10:50 63 04/24/18 10:45 78 04/24/18 10:45 73 116/62 (80) 04/24/18 10:40 64 04/24/18 10:40 87 118/58 (78) 04/24/18 10:38 18 04/24/18 10:35 77 104/55 (71) 04/24/18 10:35 92 04/24/18 10:30 62 04/24/18 10:30 66 108/54 (72) 04/24/18 10:25 61 04/24/18 10:25 74 116/54 (74) 04/24/18 10:23 97.7 17 04/24/18 10:20 70 112/53 (72) 04/24/18 10:20 68 04/24/18 10:15 83 126/53 (77) 04/24/18 10:15 71 04/24/18 10:13 67 18 124/58 (80) 04/24/18 10:10 72 04/24/18 10:05 93 04/24/18 09:31 65 128/78 (95) Objective Remarks GENERAL: Well-nourished, well-developed patient. CARDIOVASCULAR: Regular rate and rhythm without murmurs, gallops, or rubs. RESPIRATORY: Breath sounds equal bilaterally. No accessory muscle use. ABDOMEN/GI: Abdomen soft, non-tender. Fundus: Firm, non-tender at umbilicus. GENITOURINARY: Light to moderate bleeding. EXTREMITIES: No cyanosis or edema, non-tender, without signs of DVT. Medications and IVs Current Medications Medications (Trade) Dose Ordered Sig/Daniel Route Start Time Stop Time Status [facility] No systemic narcotics to be given except... UNSCH PRN .XX 6/24/18 10:45 04/25/18 10:44 [place] [place] DO NOT ADMINISTER ANY ANTICOAGUL... UNSCH PRN .XX 04/24/18 10:45 04/25/18 10:44 (NS Flush) 2 ml BID IV FLUSH 04/24/18 21:00 (NS Flush) 2 ml UNSCH PRN IV FLUSH 04/24/18 18:00 (Tylenol) 650 mg Q4H PRN PO 04/24/18 18:00 04/25/18 04:26 (Motrin) 800 mg Q8H PRN PO 04/24/18 18:00 04/25/18 04:26 (Percocet 5-325 Mg) 1 tab Q4H PRN PO 04/24/18 18:00 (Percocet 5-325 Mg) 2 tab Q4H PRN PO 04/24/18 18:00 (Americaine 20% Top Spr) 1 spray Q4H PRN TOPICAL 04/24/18 18:00 04/24/18 21:20 (Tucks Pads) 1 applic QID PRN TOPICAL 04/24/18 18:00 04/24/18 21:18 (Denisse-Colace) 2 tab Q12H PRN PO 04/24/18 18:00 (Ambien) 5 mg HS PRN PO 04/24/18 18:00 (Mag-Al Plus Susp Liq) 15 ml Q8H PRN PO 04/24/18 18:00 (Zofran Odt) 4 mg Q6H PRN PO 04/24/18 18:00 Assessment/Plan Problem List: (1) 39 weeks gestation of ICD Codes: Z3A.39 - 39 weeks gestation of Status: Acute Assessment and Plan PPD # 1 s/p doing well, routine care Laurel Thakkar MD Apr 25, 2018 09:30
[2018-04-25] MEDS: DOCUSATE SODIUM 50 MG/SENNA 8.6 MG TAB PO PRN (15:55)
[2018-04-25 20:00] VITALS: BP 110/78; PULSE 102; RESP 18; TEMP 98.1; O2SAT 98
[2018-04-26] MEDS: ACETAMINOPHEN 325 MG TAB PO PRN (05:13)
[2018-04-26] MEDS: DOCUSATE SODIUM 50 MG/SENNA 8.6 MG TAB PO PRN (05:13)
[2018-04-26] MEDS: IBUPROFEN 800 MG TAB PO PRN (05:14)
[2018-04-26 08:00] VITALS: BP 117/57; PULSE 71; RESP 20; TEMP 98.8; O2SAT 98
--- NOTE | 2018-04-26 12:51 | HHI.DCPOC ---
Discharge Care Plan Your Health Problems Are: Vaginal delivery Report Symptoms to Your Doctor -Temperature above 100.5 degrees -Redness, of incision or excessive or foul smelling drainage -Unusual pain or calf pain -Increased vaginal bleeding -Painful or difficulty urinating -Feelings of extreme sadness or anxiety after 2 weeks Goals to Promote Your Health * To prevent worsening of your condition and complications * To maintain your health at the optimal level Directions to Meet Your Goals Take your medications as prescribed Follow your dietary instruction Follow activity as directed Ensure plenty of rest for recovery Drink fluids for hydration Keep your appointments as scheduled Take your immunizations and boosters as scheduled If your symptoms worsen call your PCP, if no PCP go to Urgent Care Center or Emergency Room Smoking is Dangerous to Your Health. Avoid second hand smoke Call the 24-hour crisis hotline for domestic abuse at Laurel Thakkar MD Apr 26, 2018 12:51
--- NOTE | 2018-04-26 12:55 | HHI.DS ---
Admission Date Apr 23, 2018 at 23:55 Admitting Diagnosis Diagnosis: Delivery Date: Apr 24, 2018 Vaginal Delivery: Vacuum Infant: Female, Single Pt Condition on Discharge: Good Discharge Disposition: Discharge Home Discharge Instructions Diet Instructions: As Tolerated, No Restrictions Activities You Can Perform: Pelvic Rest Activities to Avoid: Sexual Activity Laurel Thakkar MD Apr 26, 2018 12:55
== END 2018-04-26 19:34 | disposition home or self-care (01) | DRG 775 ==
LOC: HOBED 23:21 → H2EB 23:55 → H1EA 04-24 20:06
PROVIDERS: ADMIT Obstetrics & Gynecology; ATTEND Obstetrics & Gynecology
PROC: 10E0XZZ Delivery of Products of Conception, External Approach (ICD-10-PCS; principal; 2018-04-24)
PROC: 0KQM0ZZ Repair Perineum Muscle, Open Approach (ICD-10-PCS; 2018-04-24)
PROC: 10907ZC Drainage of Amniotic Fluid, Therapeutic from Products of Conception, Via Natural or Artificial Opening (ICD-10-PCS; 2018-04-24)
PROC: 00HU33Z Insertion of Infusion Device into Spinal Canal, Percutaneous Approach (ICD-10-PCS; 2018-04-24)
PROC: 3E0R3BZ Introduction of Anesthetic Agent into Spinal Canal, Percutaneous Approach (ICD-10-PCS; 2018-04-24)
DX: O70.1 Second degree perineal laceration during delivery (principal); Z37.0 Single live birth; Z3A.39 39 weeks gestation of pregnancy
CPT/HCPCS: 80307; 81001; 84112; 86850; 86900; 86901; 90715; G0481; J2590; J3010; J7120